=== PATIENT | female | born 1995 | race Caucasian/White ===

== ENCOUNTER 2024-12-13 14:04 | Emergency (ER) | payer BC ==
[~2024-12-13] VITALS: Ht 162.6 cm; Wt 89.9 kg
[2024-12-13 14:12] VITALS: BP 133/72; PULSE 75; RESP 16; O2SAT 99
--- NOTE | 2024-12-13 15:56 | Physician Documentation ---
History of Present Illness General Chief Complaint: Laceration Stated Complaint: FINGER LAC Time Seen by MD: 14:17 History of Present Illness Initial Comments Right-hand dominant female. Got a new MANDALIN in being tried using a today in his superficial avulsion the polyp with the finger. Medication Reconciliation Allergies: Coded Allergies: Sulfa (Sulfonamide Antibiotics) (Unverified Allergy, Severe, throat swelling, rash, 12/13/24) Review of Systems All Other Systems at this time: Reviewed and Negative Integumentary AVULSION Physical Exam Physical Exam Vital Signs: RN Vital Signs have been reviewed: Yes, Temperature: 98.0, Source: Temporal, Heart Rate: 75, Respiratory Rate: 16, BP: 133/72, Pulse Oximetry: 99, Weight: 89.900 Oxygen Flow Rate: 0 General Appearance: alert, WD/WN, mild distress Head: normal inspection Face: normal inspection Pupils/EOM/Fundus: PERRLA Chest: no accessory muscle use Cardiovascular: regular rate, rhythm Extremities POLYP AND FINGERTIPS SUPERFICIAL AVULSION Neurologic: oriented x4 Motor / Sensory: no motor deficit, no sensory deficit Psychiatric: normal mood/affect Skin: normal color Procedures Laceration/Wound Repair Laceration/Wound Repair : Location: RIGHT MIDDLE FINGER Length (cm): 0.25 Anesthesia: none Prep: cholorprep Repaired: skin Wound Repaired With: Dermabond Procedure Note WOUND PREPPED AND CLEANED. ON A BLOODLESS FIELD APPLIED DERMABOND. PATIENT TOLERATED PROCEDURE WELL Progress Results/Orders Results/Orders Vital Signs 12/13/24 12/13/24 14:12 16:29 Temp 98.0 98.0 Pulse 75 Resp 16 B/P (MAP) 133/72 Pulse Ox 99 O2 Flow Rate 0 Medical Decision Making Differential Diagnosis RIGHT MIDDLE FINGER DISTAL PULP AVULSION FROM MANDOLINE SLICE HER REQUIRING WOUND MANAGEMENT. WOUND WAS CLEANSED AND THEN AND A BLOOD FEEL DERMABOND APPLIED FOR COMFORT AND SUPPORT. NO INDICATION FOR ANTIBIOTICS. AFTERCARE INSTRUCTIONS PROVIDED. Departure Disposition: HOME / SELF CARE / HOMELESS Impression: Primary Impression: Avulsion, finger tip Qualified Codes: S61.209A - Unspecified open wound of unspecified finger without damage to nail, initial encounter Condition: Stable Discharge Instructions: Laceration Care, Adult, [id number] Additional Instructions: Allow the skin due to bio degrade on own. Watch for signs of infection and return to the emergency department as needed. Faint he was visiting [facility]. Referrals: NO PRIMARY CARE PROVIDER (PCP) Education Educated: Patient Educated regarding: diagnosis, treatment Signature Scribe Signature: . Attestation: . [facility] PAC December 13, 2024 15:56
[2024-12-13 16:29] VITALS: TEMP 98
== END 2024-12-13 16:30 | disposition home or self-care (01) ==
LOC: ER 14:05
DX: S61.212A Laceration without foreign body of right middle finger without damage to nail, initial encounter (principal); Z88.2 Allergy status to sulfonamides; X58.XXXA Exposure to other specified factors, initial encounter; Y93.89 Activity, other specified; Y92.89 Other specified places as the place of occurrence of the external cause; Y99.8 Other external cause status
CPT/HCPCS: 12001; 99282; A6449